=== PATIENT | female | born 1950 | race Caucasian/White ===

== ENCOUNTER 2021-01-14 13:11 | Inpatient (IN) ==
[2021-01-14] MEDS ORDERED: 0.9 % Sodium Chloride 500 ML IVC ONE ×2 (13:23→15:17)
[2021-01-14] MEDS ORDERED: Ondansetron 4 MG/2 ML VIAL IVP ONE (13:23)
[2021-01-14 14:21] LABS: Basophils % 0.5 %; Eosinophils # 0.1 K/mcL (0.0-0.6); Eosinophils % 1.2 %; Hematocrit 41.6 % (35.3-44.9); Hemoglobin 13.2 g/dL (11.5-15.4); Immature Granulocytes % 0.4 % (0-4); Lymphocytes # 0.7 K/mcL (0.6-4.6); Lymphocytes % 8.8 %; Mean Corpuscular HGB Conc 31.7 g/dL (31.6-35.5); Mean Corpuscular Hemoglobin 29.3 pg (28.0-33.3); Mean Corpuscular Volume 92.4 fL (83.0-100.0); Mean Platelet Volume 11.5 fL (9.4-12.4); Monocytes # 0.7 K/mcL (0.0-1.3); Monocytes % 8.4 %; Neutrophils # 6.7 K/mcL (1.6-8.9); Platelet Count 183 K/mcL (140-400); Red Cell Distribution Width 14.6 % (11.5-14.5); Segmented Neutrophils % 80.7 %; White Blood Count 8.3 K/mcL (4.3-11.1)
[2021-01-14 14:34] LABS: Calcium 9.5 mg/dL (8.6-10.3); Magnesium 2.5 mg/dL (1.6-2.6); Potassium 5.7 mEq/L (3.5-5.1)
[2021-01-14 14:38] LABS: Troponin I 0.03 ng/mL (< 0.04)
[2021-01-14 15:29] LABS: Bilirubin,Urine Negative (Negative); Blood,Urine Moderate (Negative); Clarity,Urine Cloudy (Clear); Color,Urine Yellow (Yellow); Glucose,Urine (UA) 100 mg/dL (Normal); Ketones,Urine Negative (Negative); Leukocyte Esterase,Urine Large (Negative); Nitrite,Urine Negative (Negative); PH,Urine 5.5 pH Units (5.0-8.0); Protein,Urine 100 mg/dL (Neg-Trace); Urobilinogen,Urine Normal (Normal)
[2021-01-14 15:34] LABS: WBC,Urine TNTC per hpf (0-3)
[2021-01-14] MEDS ORDERED: cefTRIAXone 1,000 MG in 0.9 % Sodium Chloride Mini Bag 100 ML IVPB ONE (15:51)
[2021-01-14] MEDS ORDERED: 0.9 % Sodium Chloride 1,000 ML IVC SCH (16:00)
[2021-01-14] MEDS ORDERED: MOM Conc 10 ML UD.LIQ PO PRN (16:26)
[2021-01-14] MEDS ORDERED: Ondansetron ODT 4 MG TAB.RAPDIS SL PRN (16:26)
[2021-01-14] MEDS ORDERED: Naloxone 0.4 MG/ML INJ IVP PRN (16:26)
[2021-01-14] MEDS ORDERED: Ergocalciferol (VIT D2) 50,000 UNIT (1.25MG) CAP PO SCH (17:45)
[2021-01-14 19:13] LABS: Calcium 8.6 mg/dL (8.6-10.3); Potassium 5.5 mEq/L (3.5-5.1)
[2021-01-14] MEDS ORDERED: Insulin Human Regular 10 UNIT in 0.9 % Sodium Chloride 10 ML IV ONE (20:25)
[2021-01-14] MEDS ORDERED: *HR* Dextrose 50 % in Water (Vial) 50 ML VIAL IVP ONE (20:26)
[2021-01-14] MEDS ORDERED: Calcium Gluconate 1gm/50mL 1 GM/50 ML BAG IVPB ONE (22:29)
[2021-01-14 22:39] LABS: Calcium 8.6 mg/dL (8.6-10.3); Potassium 4.8 mEq/L (3.5-5.1)
[2021-01-14] MEDS ORDERED: *HR* Heparin 5,000 UNIT/ML VIAL IVP ONE (23:03)
[2021-01-14] MEDS ORDERED: *HR* Heparin 5,000 UNIT/ML VIAL IVP PRN ×2 (23:03)
[2021-01-14] MEDS ORDERED: Aspirin 325 MG TABLET PO ONE (23:04)
[2021-01-14] MEDS ORDERED: Heparin 25,000UNIT/250ML 1/2NS 25,000 UNIT/250 ML IV.SOLN IVC SCH (23:15)
[2021-01-14 23:20] VITALS: BP 93/54
[2021-01-14 23:33] LABS: Hematocrit 34.7 % (35.3-44.9); Hemoglobin 11.1 g/dL (11.5-15.4); Mean Corpuscular Hemoglobin 29.8 pg (28.0-33.3); Mean Platelet Volume 10.9 fL (9.4-12.4); Platelet Count 169 K/mcL (140-400); Red Blood Count 3.73 M/mcL (3.82-4.97); Red Cell Distribution Width 14.6 % (11.5-14.5); White Blood Count 9.5 K/mcL (4.3-11.1)
[2021-01-14 23:41] LABS: Prothrombin Time 11.4 Seconds (9.4-12.1)
[2021-01-14 23:48] LABS: Heparin anti-factor XA UFH < 0.04 IU/mL (0.30-0.70)
[2021-01-15] MEDS ORDERED: *HR* Heparin 5,000 UNIT/ML VIAL SQ SCH
[2021-01-15] MEDS ORDERED: cefTRIAXone 1,000 MG in Water for inj. (sterile) 10 ML IVP SCH (09:00)
== END 2021-01-14 23:55 | disposition short-term general hospital (02) | DRG 683 ==
LOC: EMEROOGRE 13:11 → INPGRE 13:11
PROVIDERS: ADMIT Family Medicine; ATTEND Family Medicine